=== PATIENT | male | born 2005 | race Caucasian/White ===

== ENCOUNTER 2024-06-24 15:15 | Outpatient (REF) | payer MEDICAID, SELFPAY ==
[2024-06-24 21:45] LABS: Abs Immature Grans 0.02 10^3/uL (0.0-0.06); Absolute Basophil Count 0.05 10^3/uL (0.0-0.2); Absolute Eosinophil Count 0.08 10^3/uL (0.0-0.7); Absolute Lymphocyte Count 2.04 10^3/uL (1.2-3.4); Absolute Monocyte Count 0.57 10^3/uL (0.1-0.8); Absolute Neutrophil Count 5.12 10^3/uL (1.2-6.7); Basophils % 0.6 %; HCT 49.6 % (40.0-50.0); HGB 17.1 g/dL (13.5-17.5); Immature Grans % 0.3 %; Lymphocytes % 25.9 %; MCH 29.3 pg (27.0-33.0); MCHC 34.5 % (32.0-36.0); MCV 85 fL (80-95); MPV 11.6 fL (8.0-11.0); Monocytes % 7.2 %; Platelet Count 258 10^3/uL (130-400); RBC 5.83 10^6/uL (4.36-5.78); RDW 11.9 % (11.8-14.1); WBC 7.88 10^3/uL (4.4-10.8)
[2024-06-24 22:04] LABS: ALT 136 U/L (16-63); AST 77 U/L (15-37); Albumin 4.4 g/dL (3.4-5.0); Alkaline Phosphatase 96 U/L (46-116); Anion Gap 9.3 mmol/L (3-11); BUN 13 mg/dL (7-18); Bilirubin, Total 1.07 mg/dL (0.2-1.0); CO2 27.7 mmol/L (21.0-32.0); CREATININE 1.1 mg/dL (0.70-1.30); Chloride 98 mmol/L (98-107); Estimated GFR 97.95 (mL/min/1.73m2); FREE T4 1.35 ng/dL (0.76-1.46); Glucose 441 mg/dL (74-106); Potassium 4.4 mmol/L (3.5-5.1); Sodium 135 mmol/L (136-145); TSH 1.78 uIU/Ml (0.36-3.74); Total Protein 8.7 g/dL (6.4-8.2)
[2024-06-24 22:09] LABS: Hemoglobin A1C 10.2 % (<5.7)
[2024-06-25 19:43] LABS: Hepatitis C Ab w Rflx HCV PCR Negative (Negative)
== END 2024-06-24 15:16 | disposition home or self-care (01) ==
LOC: NCHCN 15:15
PROVIDERS: PCP Family Medicine; Visit Provider Family Medicine
DX: E66.9 Obesity, unspecified (principal); E11.9 Type 2 diabetes mellitus without complications; Z11.59 Encounter for screening for other viral diseases
CPT/HCPCS: 80053; 86803; 83036; 84439; 84443; 85025

== ENCOUNTER 2024-09-24 13:51 | Outpatient (REF) | payer MEDICAID, SELFPAY ==
[2024-09-24 15:32] LABS: Microalb ug/mg Crea 48.6 ug/mg Cr
== END 2024-09-24 13:52 | disposition home or self-care (01) ==
LOC: NCHCN 13:51
PROVIDERS: PCP Family Medicine; Visit Provider Family Medicine
DX: E11.9 Type 2 diabetes mellitus without complications (principal); R74.01 Elevation of levels of liver transaminase levels
CPT/HCPCS: 80053; 82043; 82570

== ENCOUNTER 2024-11-18 13:58 | Outpatient (REF) | payer MEDICAID, SELFPAY ==
[2024-11-18 15:08] LABS: Abs Immature Grans 0.02 10^3/uL (0.0-0.06); Absolute Basophil Count 0.03 10^3/uL (0.0-0.2); Absolute Eosinophil Count 0.08 10^3/uL (0.0-0.7); Absolute Lymphocyte Count 2.32 10^3/uL (1.2-3.4); Absolute Monocyte Count 0.71 10^3/uL (0.1-0.8); Basophils % 0.4 %; HCT 47.7 % (40.0-50.0); HGB 15.8 g/dL (13.5-17.5); Immature Grans % 0.3 %; Lymphocytes % 29.1 %; MCHC 33.1 % (32.0-36.0); MCV 85 fL (80-95); Monocytes % 8.9 %; Neutrophils % 60.3 %; RBC 5.64 10^6/uL (4.36-5.78); RDW 13.2 % (11.8-14.1); RDW-SD 40.8 fL; WBC 7.96 10^3/uL (4.4-10.8)
[2024-11-18 15:33] LABS: ALT 59 U/L (16-63); AST 29 U/L (15-37); Albumin 4.4 g/dL (3.4-5.0); Alkaline Phosphatase 73 U/L (46-116); BUN 15 mg/dL (7-18); Bilirubin, Total 1.08 mg/dL (0.2-1.0); CREATININE 0.9 mg/dL (0.70-1.30); Calcium 10.3 mg/dL (8.5-10.1); Chloride 102 mmol/L (98-107); Estimated GFR 124.61 (mL/min/1.73m2); FREE T4 0.93 ng/dL (0.76-1.46); Glucose 87 mg/dL (74-106); Potassium 4.3 mmol/L (3.5-5.1); Sodium 140 mmol/L (136-145); TSH 2.61 uIU/mL (0.36-3.74); Total Protein 8.3 g/dL (6.4-8.2)
[2024-11-18 15:40] LABS: Platelet Count 231 10^3/uL (130-400)
[2024-11-18 16:02] LABS: Hemoglobin A1C 5.4 % (<5.7)
[2024-11-19 11:05] LABS: Hepatitis C Ab w Rflx HCV PCR Negative (Negative)
== END 2024-11-18 13:59 | disposition home or self-care (01) ==
LOC: NCHCN 13:58
PROVIDERS: PCP Family Medicine; Visit Provider Family Medicine
DX: E66.9 Obesity, unspecified (principal); E11.9 Type 2 diabetes mellitus without complications; Z11.59 Encounter for screening for other viral diseases
CPT/HCPCS: 80053; 86803; 83036; 84439; 84443; 85025

== ENCOUNTER 2024-12-23 13:38 | Outpatient (REF) | payer MEDICAID, SELFPAY ==
[2024-12-23 21:32] LABS: ALT 49 U/L (16-63); AST 27 U/L (15-37); Albumin 4.5 g/dL (3.4-5.0); Alkaline Phosphatase 73 U/L (46-116); Anion Gap 7.4 mmol/L (3-11); BUN 16 mg/dL (7-18); CO2 31.6 mmol/L (21.0-32.0); CREATININE 0.9 mg/dL (0.70-1.30); Calcium 10.7 mg/dL (8.5-10.1); Chloride 104 mmol/L (98-107); Estimated GFR 124.61 (mL/min/1.73m2); Glucose 96 mg/dL (74-106); Potassium 4.4 mmol/L (3.5-5.1); Sodium 143 mmol/L (136-145); Total Protein 8.6 g/dL (6.4-8.2)
[2024-12-23 21:41] LABS: Bilirubin, Direct 0.2 mg/dL (0.0-0.2)
== END 2024-12-23 13:39 | disposition home or self-care (01) ==
LOC: NCHCN 13:38
PROVIDERS: PCP Family Medicine; Visit Provider Family Medicine
DX: R17 Unspecified jaundice (principal)
CPT/HCPCS: 80053; 82248